=== PATIENT | male | born 1995 | race Caucasian/White ===

== ENCOUNTER 2018-02-06 09:57 | Emergency (ER) | payer SELFPAY ==
[2018-02-06] MEDS ORDERED: OXYCODONE-ACETAMINOPHEN 5-325 MG TABLET PO ONE (10:29)
[2018-02-06] MEDS ORDERED: CEPHALEXIN 500 MG CAPSULE PO ONE (10:29)
--- NOTE | 2018-02-06 10:34 | ER Document Report ---
HPI - HPI Patient complains to provider of: Abscess Time Seen by Provider: 02/06/18 10:20 Onset: Last week Onset/Duration: Persistent Quality of pain: Achy Pain Level: 5 Context: Patient complains of abscess to lower leg for the past week. Patient was in urgent care 3 days ago and was given a prescription for Bactrim. Patient denies any improvement of his symptoms. Patient denies any fever. Associated Symptoms: denies: Fever Exacerbated by: Movement Relieved by: Denies Similar symptoms previously: Yes Recently seen / treated by doctor: Yes - ROS ROS below otherwise negative: Yes Systems Reviewed and Negative: Yes All other systems reviewed and negative - CONSTITUTIONAL Constitutional: DENIES: Fever - GASTROINTESTINAL Gastrointestinal: DENIES: Nausea - MUSCULOSKELETAL Musculoskeletal: REPORTS: Extremity pain - DERM Skin Color: Erythema Notes: Abscess Past Medical History - General Information source: Patient - Social History Smoking Status: Current Every Day Smoker Smoking Education Provided: Yes Frequency of alcohol use: Occasional Drug Abuse: Marijuana Occupation: [employer] Lives with: Family Family History: Reviewed & Not Pertinent - Medical History Medical History: Negative Surgical Hx: Negative Vertical Provider Document - CONSTITUTIONAL Agree With Documented VS: Yes Exam Limitations: No Limitations General Appearance: WD/WN, No Apparent Distress - INFECTION CONTROL TRAVEL OUTSIDE OF THE [place] IN LAST 30 DAYS: No - HEENT HEENT: Atraumatic - NECK Neck: Normal Inspection - RESPIRATORY Respiratory: Breath Sounds Normal, No Respiratory Distress - CARDIOVASCULAR Cardiovascular: Regular Rate, Regular Rhythm - BACK Back: Normal Inspection - MUSCULOSKELETAL/EXTREMETIES Musculoskeletal/Extremeties: MAEW, FROM - NEURO Level of Consciousness: Awake, Alert, Appropriate Motor/Sensory: No Motor Deficit - DERM Integumentary: Warm, Dry, Abscess - left proximal lower leg abscess with surrounding erythema Course - Vital Signs Vital signs: Temp Pulse Resp BP Pulse Ox 98.0 F 83 19 149/83 H 100 02/06/18 10:06 02/06/18 10:06 02/06/18 10:06 02/06/18 10:06 02/06/18 10:06 Procedures - Incision and Drainage Left Leg Type: Simple Anesthetic type: 1% Lidocaine Blade size: 11 I&D procedure: Betadine prep applied Incision Method: Incision made by scalpel Amount/type of drainage: Moderate amount of purulent drainage Adult Front & Back picture: 1 - Abscess Discharge - Discharge Clinical Impression: Leg abscess, Encounter for incision and drainage procedure Cellulitis Qualifiers: Site of cellulitis: extremity Site of cellulitis of extremity: lower extremity Laterality: left Qualified Code(s): L03.116 - Cellulitis of left lower limb Condition: Stable Disposition: HOME, SELF-CARE Instructions: Abscess ([facility]), Cephalexin ([facility]), Post Incision and Drainage, Trimethoprim-Sulfa ([facility]) Additional Instructions: Return immediately for any new or worsening symptoms Followup with your primary care provider, call tomorrow to make a followup appointment Prescriptions: Cephalexin Monohydrate [Keflex 500 mg Capsule] 500 mg PO Q6H 7 Days capsule Mupirocin [Bactroban 2% Ointment 22 gm] 1 applic TP TID #22 gm Forms: Return to Work Referrals: [facility] [Provider Group] - Follow up as needed
[2018-02-06 11:35] VITALS: BP 117/79
== END 2018-02-06 11:38 | disposition home or self-care (01) ==
LOC: ER 09:57
PROC: 0H9LXZZ Drainage of Left Lower Leg Skin, External Approach (ICD-10-PCS; principal; 2018-02-06)
DX: L02.416 Cutaneous abscess of left lower limb (principal); L03.116 Cellulitis of left lower limb; F17.200 Nicotine dependence, unspecified, uncomplicated
CPT/HCPCS: 99283

== ENCOUNTER 2018-07-07 09:02 | Emergency (ER) | payer SELFPAY ==
[2018-07-07 09:06] VITALS: BP 137/67
[2018-07-07] MEDS ORDERED: DEXAMETHASONE SOD PHOS INJ 10 MG/1 ML VIAL IM ONE (09:27)
--- NOTE | 2018-07-07 09:28 | ER Document Report ---
HPI - HPI Time Seen by Provider: 07/07/18 09:14 Pain Level: 4 Notes: Patient is a 23-year-old male presents emergency department chief complaint of fever, sore throat and diarrhea that is been ongoing for 4 days. Patient denies any vomiting. Patient reports history of strep, states this feels similar. Past Medical History - General Information source: Patient - Social History Smoking Status: Never Smoker Frequency of alcohol use: None Drug Abuse: None Family History: Reviewed & Not Pertinent - Medical History Medical History: Negative Renal/ Medical History: Denies: Hx Peritoneal Dialysis Surgical Hx: Negative - Immunizations Immunizations up to date: Yes Vertical Provider Document - CONSTITUTIONAL Notes: PHYSICAL EXAMINATION: GENERAL: Well-appearing, well-nourished and in no acute distress. HEAD: Atraumatic, normocephalic. EYES: Pupils equal round extraocular movements intact, conjunctiva are normal. ENT: Nares patent mild tonsillar swelling noted but no exudates and mild erythema., No evidence of peritonsillar abscess, uvula midline. NECK: Normal range of motion, no palpable cervical lymphadenopathy. LUNGS: No respiratory distress, lung sounds clear and equal bilaterally. Musculoskeletal: Normal range of motion NEUROLOGICAL: Normal speech, normal gait. PSYCH: Normal mood, normal affect. SKIN: Warm, Dry, normal turgor, no rashes or lesions noted. - INFECTION CONTROL TRAVEL OUTSIDE OF THE [place] IN LAST 30 DAYS: No Course - Re-evaluation Re-evalutation: Patient appears well, nontoxic and physical examination is rather unremarkable. Rapid strep is negative. Patient was given Decadron for his throat pain. Patient understands that throat culture is pending. Patient given ED return precautions and [id number] remedies. - Vital Signs Vital signs: Temp Pulse Resp BP Pulse Ox 98.8 F 95 18 137/67 H 98 07/07/18 09:05 07/07/18 09:05 07/07/18 09:05 07/07/18 09:05 07/07/18 09:05 Discharge - Discharge Clinical Impression: Sore throat, Viral syndrome Diarrhea Qualifiers: Diarrhea type: unspecified type Qualified Code(s): R19.7 - Diarrhea, unspecified Condition: Stable Disposition: HOME, SELF-CARE Instructions: Diarrhea, Nonspecific ([facility]), Sore Throat ([facility]), Viral Syndrome ([facility]) Additional Instructions: The rapid strep was negative today. A throat culture is pending. Someone will call you in the next 2 to 3 days if there is any abnormality with this. Keep pushing fluids. Take Tylenol or ibuprofen for pain. Follow-up with your primary care provider if symptoms persist. You may take Imodium if your diarrhea persists past the 5 to 7-day bryan.
== END 2018-07-07 10:04 | disposition home or self-care (01) ==
LOC: ER 09:02
DX: J02.9 Acute pharyngitis, unspecified (principal); B34.9 Viral infection, unspecified; R50.9 Fever, unspecified; R19.7 Diarrhea, unspecified
CPT/HCPCS: 99283; 96372; 87070; 87880; J1100